=== PATIENT | male | born 1940 | race Caucasian/White ===

== ENCOUNTER 2016-12-08 12:13 | Inpatient (IN) | payer MEDICARE, BC ==
[2016-12-08] MEDS ORDERED: FENTANYL PF 100MCG/2ML VIAL IVP ONE ×3 (12:21→16:12)
[2016-12-08 12:29] LABS: BASO % 0.4 % (0-6); EOS % 3.3 % (0-6); GRAN % 69.2 % (47-80); HEMATOCRIT 37.8 % (42.0-52.0); HEMOGLOBIN 12.6 gm/dl (14.0-18.0); LYMPH % 21.5 % (16-45); MEAN CELL VOLUME 93.8 fl (81-97); MEAN CORPUSCULAR HGB CONC 33.3 g/dl (32-36); MONO % 5.6 % (0-9); PLATELET COUNT 246 K/uL (130-400); RED BLOOD COUNT 4.03 M/uL (4.40-5.70); RED CELL DISTRIBUTION WIDTH 14.2 % (11.5-14.5); WHITE BLOOD COUNT W/O DIFF 11.3 K/uL (4.2-12.2)
[2016-12-08 12:30] LABS: MEAN CORPUSCULAR HEMOGLOBIN 31.2 pg (27-33)
--- NOTE | 2016-12-08 12:34 | Emergency Department Record ---
History of Present Illness - General Chief Complaint: Back Pain/Injury Stated Complaint: BACK PAIN Time Seen by Provider: 12/08/16 12:18 Source: Patient Mode of Arrival: Ambulatory Limitations: No limitations - History of Present Illness Initial Comments: 76 yo male presents with worsening of right sided lower back pain. He reports that he has a history of recurring back pain for many years. The pain has worsened recently. He follows with Dr Vargas. He has an appointment today at 3: 30pm. His pain increased and he called EMS. He reports prior treatment in the pain clinic in the past for the back pain. The pain radiates to the right knee. No weakness or numbness. He has pain with ROM. PCP Scott Carrero MD Complaint: Back pain -: Week(s) Place: Home Radiation: Right leg Severity: Severe Quality: Aching, Sharp, Stabbing Consistency: Intermittent Improves With: Immobilization Worsens With: Movement Context: Bending Associated Symptoms: Denies other symptoms - Related Data Home Medications Medication Instructions Recorded Confirmed Last Taken Acetaminophen [Tylenol 325Mg] 650 mg PO Q6H 12/08/16 12/08/16 Unknown Amlodipine Besylate [Norvasc] 5 mg PO DAILY 12/08/16 12/08/16 Unknown Cholecalciferol (Vitamin D3) 2,000 unit PO DAILY 12/08/16 12/08/16 Unknown [Vitamin D3] Gabapentin [Neurontin] 100 mg PO QHS 12/08/16 12/08/16 Unknown Glipizide 5 mg PO DAILY 12/08/16 12/08/16 Unknown Omeprazole 20 mg PO DAILY 12/08/16 12/08/16 Unknown Allergies Allergy/AdvReac Type Severity Reaction Status Date / Time hydrocodone Allergy Mild PT UNSURE Verified 12/08/16 12:17 OF REACTION hydrocodone bitartrate Allergy Mild PT UNSURE Verified 12/08/16 12:17 [From [place]] OF REACTION penicillin V Allergy RASH Verified 12/08/16 12:17 Review of Systems Constitutional: Denies: Chills, Fever, Weakness Eyes: Denies: Eye discharge, Eye pain ENT: Denies: Congestion, Throat pain Respiratory: Denies: Cough, Dyspnea, Hemoptysis, Wheezes Cardiovascular: Denies: Chest pain, Palpitations, Syncope Endocrine: Denies: Fatigue Gastrointestinal: Denies: Abdominal pain, Diarrhea, Nausea, Vomiting Genitourinary: Denies: Dysuria, Frequency, Hematuria Musculoskeletal: Reports: As per HPI, Back pain, Myalgia. Denies: Joint swelling Skin: Denies: Bruising, Change in color, Rash Neurological: Denies: Confusion, Headache, Numbness, Paresthesias, Tingling, Tremors, Vertigo, Weakness Psychiatric: Denies: Anxiety Hematological/Lymphatic: Denies: Blood Clots, Easy bleeding, Easy bruising, Swollen glands Past Medical History - SOCIAL HISTORY Smoking Status: Never smoker - RESPIRATORY Hx Respiratory Disorders: Yes Hx Pneumonia: Yes - CARDIOVASCULAR Hx Cardio Disorders: Yes Hx Hypertension: Yes Comment:: hypercholesteremia - NEURO Hx Neuro Disorders: No - GI Hx GI Disorders: No - Hx Genitourinary Disorders: Yes Comment:: stage 3 kidney disease - ENDOCRINE Hx Endocrine Disorders: Yes Hx Diabetes: Yes - MUSCULOSKELETAL Hx Musculoskeletal Disorders: Yes Hx Arthritis: Yes - PSYCH Hx Psych Problems: No - HEMATOLOGY/ONCOLOGY Hx Hematology/Oncology Disorders: No Physical Exam - General General Appearance: Alert, Oriented x3, Cooperative, No acute distress Limitations: No limitations - Head Head exam: Normal inspection - Eye Eye exam: Normal appearance. negative: Conjunctival injection, Periorbital swelling - ENT ENT exam: Normal exam, Mucous membranes moist Ear exam: Normal external inspection Nasal Exam: Normal inspection Mouth exam: Normal external inspection - Neck Neck exam: Normal inspection - Respiratory Respiratory exam: Normal lung sounds bilaterally. negative: Respiratory distress - Cardiovascular Cardiovascular Exam: Regular rate, Normal rhythm, Normal heart sounds Peripheral Pulses: 2+: Radial (R), Radial (L) - GI/Abdominal GI/Abdominal exam: Soft. negative: Tenderness - Rectal Rectal exam: Deferred - exam: Deferred - Extremities Extremities exam: Normal inspection, Full ROM, Normal capillary refill. negative: Joint swelling, Tenderness - Back Back exam: Reports: Muscle spasm, Paraspinal tenderness (right lower back), Tenderness, Vertebral tenderness. Denies: Full ROM, Rash noted - Neurological Neurological exam: Alert. negative: Motor sensory deficit, Oriented X3, Reflexes normal - Psychiatric Psychiatric exam: Normal affect, Normal mood. negative: Agitated, Anxious - Skin Skin exam: Dry, Intact, Normal color, Warm Course - Reevaluation(s) Reevaluation #1: The labs were reviewed BUN is 58 and CR is 2.4 with HCO3 14 with normal AG (HCO3 is near baseline) Prior CR was 1.8 on 11/24 with a baseline around 2.0 12/08/16 12:59 12/08/16 13:00 Reevaluation #2: Message left with Dr Vargas regarding the patient 12/08/16 13:34 No significant improvement in pain control 12/08/16 13:48 Dr Vargas's RN called He will see the patient tomorrow on the floor if admitted as a consultation 12/08/16 14:39 12/08/16 18:47 I CECY Covarrubias She will admit for OBS for recheck He will given IVF and recheck BMP in the morning Medical Decision Making - Lab Data Result diagrams: 12/08/16 12:25 12/08/16 12:25 Disposition Disposition: Admit Clinical Impression: Intractable low back pain, Renal insufficiency Disposition: Home, Self-Care Decision to Admit: Admit from ER Decision to Admit Date: 12/08/16 Decision to Admit Time: 14:40 Condition: (1) Good Time of Disposition: 14:40 Quality - Quality Measures Quality Measures: N/A - Blood Pressure Screening Does Patient Have Any of the Following: Active Dx of HTN Blood Pressure Classification: Hypertensive Reading Systolic Measurement: 154 Diastolic Measurement: 71 Screening for High Blood Pressure: Patient Exclusion, Hx of HTN [[id number]] Pre-Hypertensive Follow-up Interventions: Referral to alternative/primary care provider.
[2016-12-08] MEDS ORDERED: ACETAMINOPHEN 1,000 MG/100 ML BTL IVPB ONE (12:35)
[2016-12-08 12:43] LABS: ANION GAP 15.6 (7-16); CARBON DIOXIDE 14.4 mmol/L (22-30); CREATININE 2.4 mg/dL (0.66-1.25)
[2016-12-08 12:47] LABS: INR 0.99; PARTIAL THROMBOPLASTIN TIME 29.4 SECONDS (24.5-39.1); PROTHROMBIN TIME (PATIENT) 10.7 SECONDS (9.5-12.1)
[2016-12-08] MEDS ORDERED: 0.9 % SODIUM CHLORIDE 1,000 ML BAG IV ONE (13:22)
[2016-12-08] MEDS ORDERED: ACETAMINOPHEN 500 MG TABLET PO PRN (19:04)
[2016-12-08] MEDS ORDERED: 0.9 % SODIUM CHLORIDE 1000ML 1,000 ML IV PRN (19:04)
[2016-12-08] MEDS: ACETAMINOPHEN 1,000 MG/100 ML BTL IVPB SCH (20:50)
[2016-12-08 21:13] LABS: URINE APPEARANCE CLEAR; URINE BILIRUBIN NEGATIVE (NEGATIVE); URINE BLOOD NEGATIVE (NEGATIVE); URINE COLOR YELLOW; URINE GLUCOSE (UA) NEGATIVE (NEGATIVE); URINE KETONE NEGATIVE (NEGATIVE); URINE LEUKOCYTE ESTERASE NEGATIVE (NEGATIVE); URINE NITRITE NEGATIVE (NEGATIVE); URINE PROTEIN NEGATIVE (NEGATIVE); URINE UROBILINOGEN 0.2 E.U./dL (0.20 - 1.00)
[2016-12-08] MEDS: FENTANYL PF 100MCG/2ML VIAL IVP PRN (21:48)
[2016-12-08] MEDS: GABAPENTIN 100 MG CAPSULE PO SCH (21:49)
[2016-12-09] MEDS: ACETAMINOPHEN 1,000 MG/100 ML BTL IVPB SCH ×5 (02:49→20:21)
[2016-12-09] MEDS: FENTANYL PF 100MCG/2ML VIAL IVP PRN ×3 (04:00→20:22)
[2016-12-09] MEDS: PANTOPRAZOLE SODIUM 40 MG TABLET PO SCH (06:23)
[2016-12-09 06:57] LABS: BASO % 0.3 % (0-6); EOS % 4.8 % (0-6); GRAN % 63.9 % (47-80); HEMATOCRIT 30.6 % (42.0-52.0); HEMOGLOBIN 10.2 gm/dl (14.0-18.0); MEAN CORPUSCULAR HGB CONC 33.3 g/dl (32-36); PLATELET COUNT 191 K/uL (130-400); RED BLOOD COUNT 3.22 M/uL (4.40-5.70); RED CELL DISTRIBUTION WIDTH 14.2 % (11.5-14.5); WHITE BLOOD COUNT W/O DIFF 7.5 K/uL (4.2-12.2)
[2016-12-09 07:01] LABS: MEAN CORPUSCULAR HEMOGLOBIN 31.6 pg (27-33)
[2016-12-09 07:10] LABS: ALB/GLOB RATIO 1.6 (1.1-1.8); ALBUMIN 3.9 gm/dL (3.5-5.0); ANION GAP 9.3 (7-16); BILIRUBIN,TOTAL 0.42 mg/dL (0.2-1.3); CARBON DIOXIDE 15.7 mmol/L (22-30); CREATININE 2.1 mg/dL (0.66-1.25); TOTAL PROTEIN 6.3 gm/dL (6.3-8.2)
[2016-12-09] MEDS: LISINOPRIL 5 MG TABLET PO SCH (09:58)
[2016-12-09] MEDS: SIMVASTATIN 20 MG TABLET PO SCH (09:58)
[2016-12-09] MEDS: GLIPIZIDE 5 MG TABLET PO SCH (09:59)
[2016-12-09] MEDS: AMLODIPINE BESYLATE 5MG TAB PO SCH (09:59)
[2016-12-09] MEDS ORDERED: Non-Formulary MISC (Omeprazole [Omeprazole] 20 MG) PO SCH (10:00)
[2016-12-09] MEDS ORDERED: LISINOPRIL 2.5 MG PO SCH (10:00)
--- NOTE | 2016-12-09 12:26 | History & Physical ---
History of Present Illness - Date of Service Date of Service for History & Physical: 12/09/16 - History of Present Illness Admitting Diagnosis: Intractable Back pain, renal insufficiency History of Present Illness: 76 yo male admitted for intractable low back pain. PMHx of back sugery > 20 years ago, chronic LBP, DM2, peripheral neuropathy, renal failure, HTN, acid reflux, obesity, and gout. Patient presented to our ED with worsening right sided low back pain. Onset yesterday after getting out of the shower. Denies any known mechanism of injury such as bending, twisting. States his low back pain typically resolves on its own w/ rest, however this current episode has not. Associated symptoms include pain shooting down into right knee along with burning behind right leg. Denies weakness/ numbness (aside from his peripheral neuropathy). upon presentation, temp 97.4, HR 66, BP 154/71, RR 20, pulse ox 99% on RA. H/ H stable from previous hospital visit. Potassium 5.7, BUN 58, Cr 2.4 (baseline Cr around 2), GFR 28. Glucose 265. UA: negative. Patient was started on 100 mls/hr of IVFs, Fentanyl 50 mcg Q6H PRN, &Ofirmev [address] Vargas contacted and agree's to evaluate patient today. Patient admitted for further medical management. 12/09/16- patient is lying in bed comfortably. Denies any pain at rest. Unable to ambulate due to pain level w/ mobility. Admits to h/o peripheral neuropathy , however no new numbness or tingling. States he has pain running down from his low back to behind his right knee. Unsure if he's any more weak than usual as he's not been able to ambulate. Denies loss in bowel/bladder control. Normal GI/ output. Patient is NPO this morning. Denies fever, chills, n/v/ abd pain, change in bowel habits, cough, sob, drea, cp, unintentional weight loss or headaches. States he's lost about 10 #'s intentionally over the past month as he's trying to live healthier and correct his potassium level. Patient follows with Dr. Saleh, his resource economist re renal failure and elevated potassium level. Patient has followed with Dr. Vargas in the past re low back pain, however his last visit was back in 2013. No recent hospitalizations or illnesses per patient. PCP: Marlon Collins D.O. Nephrology: Dr. Saleh Pain specialist: Dr. Vargas Travel Screening - Travel/Exposure Within Last 30 Days Have you traveled within the last 30 days?: No - Travel/Exposure Within Last Year Have you traveled outside the [place] in the last year?: No - Additonal Travel Details Have you been exposed to anyone with a communicable illness?: No Review of Systems Constitutional: Denies: Chills, Fever, Weakness Eyes: Denies: Eye discharge, Eye pain ENT: Denies: Congestion, Throat pain Respiratory: Denies: Cough, Dyspnea, Hemoptysis, Wheezes Cardiovascular: Denies: Chest pain, Palpitations, Syncope Endocrine: Denies: Fatigue Gastrointestinal: Denies: Abdominal pain, Diarrhea, Nausea, Vomiting Genitourinary: Denies: Dysuria, Frequency, Hematuria Musculoskeletal: Reports: As per HPI, Back pain, Myalgia. Denies: Joint swelling Skin: Denies: Bruising, Change in color, Rash Neurological: Reports: Numbness (LE, b/l, chronic 2/2 periph neuropathy). Denies: Confusion, Headache, Paresthesias, Tingling, Tremors, Vertigo, Weakness Psychiatric: Denies: Anxiety Hematological/Lymphatic: Denies: Blood Clots, Easy bleeding, Easy bruising, Swollen glands Past Medical History - SOCIAL HISTORY Smoking Status: Never smoker - RESPIRATORY Hx Respiratory Disorders: Yes Hx Pneumonia: Yes - CARDIOVASCULAR Hx Cardio Disorders: Yes Hx Hypertension: Yes Comment:: hypercholesteremia - NEURO Hx Neuro Disorders: No - GI Hx GI Disorders: No - Hx Genitourinary Disorders: Yes Comment:: stage 3 kidney disease - ENDOCRINE Hx Endocrine Disorders: Yes Hx Diabetes: Yes - MUSCULOSKELETAL Hx Musculoskeletal Disorders: Yes Hx Arthritis: Yes - PSYCH Hx Psych Problems: No - HEMATOLOGY/ONCOLOGY Hx Hematology/Oncology Disorders: No Family Medical History Any Significant Family History?: Yes Hx Cancer: Father Hx Heart Disease: Father, Mother H&P Meds/Allergies - Allergies Allergies: Allergies Allergy/AdvReac Type Severity Reaction Status Date / Time hydrocodone Allergy Mild PT UNSURE Verified 12/08/16 12:17 OF REACTION hydrocodone bitartrate Allergy Mild PT UNSURE Verified 12/08/16 12:17 [From [place]] OF REACTION penicillin V Allergy RASH Verified 12/08/16 12:17 - Home Medications Home Medications Medication Instructions Recorded Confirmed Last Taken Acetaminophen [Tylenol 325Mg] 650 mg PO Q6H 12/08/16 12/08/16 Unknown Amlodipine Besylate [Norvasc] 5 mg PO DAILY 12/08/16 12/08/16 Unknown Cholecalciferol (Vitamin D3) 2,000 unit PO DAILY 12/08/16 12/08/16 Unknown [Vitamin D3] Gabapentin [Neurontin] 100 mg PO QHS 12/08/16 12/08/16 Unknown Omeprazole 20 mg PO DAILY 12/08/16 12/08/16 Unknown Glipizide [Glipizide ER] 5 mg PO DAILY 12/09/16 12/09/16 Unknown Metoprolol Succinate [Toprol Xl] 100 mg PO DAILY 12/09/16 12/09/16 Unknown - Active Medications Active Medications: Current Medications Acetaminophen (Tylenol 500mg Tab) 500 mg PO Q6H PRN PRN Reason: PAIN/TEMP Amlodipine Besylate (Norvasc) 5 mg PO DAILY [facility] Last Admin: 12/09/16 09:59 Dose: 5 mg Fentanyl Citrate () 50 mcg IVP Q6H PRN PRN Reason: Pain - General Last Admin: 12/09/16 09:59 Dose: 50 mcg Gabapentin (Neurontin) 100 mg PO QHS [facility] Last Admin: 12/08/16 21:49 Dose: 100 mg Glipizide (Glucotrol) 5 mg PO DAILY [facility] Last Admin: 12/09/16 09:59 Dose: 5 mg Sodium Chloride () 1,000 mls @ 100 mls/hr IV .Q10H PRN PRN Reason: LARGE VOLUME IV Last Admin: 12/09/16 04:01 Dose: 100 mls/hr Acetaminophen (Ofirmev) 1,000 mg in 100 mls @ 400 mls/hr IVPB Q6H [facility] Last Infusion: 12/09/16 03:16 Dose: Infused Lisinopril (Zestril) 2.5 mg PO DAILY [facility] Last Admin: 12/09/16 09:58 Dose: 2.5 mg [facility] Admin: 12/09/16 06:23 Dose: Not Given Simvastatin (Zocor) 20 mg PO DAILY [facility] Last Admin: 12/09/16 09:58 Dose: 20 mg Physical Exam - Vital Signs Vital Signs: Vital Signs - Last 24 Hrs Temp Pulse Pulse Resp BP Pulse Ox 12/09/16 05:57 98.5 F 57 L 18 121/64 99 12/08/16 21:00 63 16 12/08/16 19:04 98.1 F 57 L 16 130/67 98 12/08/16 18:56 56 L 16 12/08/16 18:10 63 18 141/66 98 - General General Appearance: Alert, Oriented x3, Cooperative, No acute distress Limitations: No limitations - Head Head exam: Normal inspection - Eye Eye exam: Normal appearance. negative: Conjunctival injection, Periorbital swelling - ENT ENT exam: Normal exam, Mucous membranes moist Ear exam: Normal external inspection Nasal Exam: Normal inspection Mouth exam: Normal external inspection - Neck Neck exam: Normal inspection - Respiratory Respiratory exam: Normal lung sounds bilaterally. negative: Respiratory distress - Cardiovascular Cardiovascular Exam: Regular rate, Normal rhythm, Normal heart sounds Peripheral Pulses: 2+: Radial (R), Radial (L) - GI/Abdominal GI/Abdominal exam: Soft. negative: Tenderness - Rectal Rectal exam: Deferred - exam: Deferred - Extremities Extremities exam: Normal inspection, Full ROM, Normal capillary refill. negative: Joint swelling, Tenderness - Back Back exam: Reports: Muscle spasm, Paraspinal tenderness (right lower back), Tenderness, Vertebral tenderness. Denies: Full ROM, Rash noted - Neurological Neurological exam: Alert. negative: Motor sensory deficit, Oriented X3, Reflexes normal - Psychiatric Psychiatric exam: Normal affect, Normal mood. negative: Agitated, Anxious - Skin Skin exam: Dry, Intact, Normal color, Warm Results - Labs Result Diagrams: 12/09/16 06:09 12/09/16 06:41 Labs Last 24 Hours: Laboratory Results - last 24 hr 12/08/16 12/09/16 12/09/16 Unknown 06:00 06:09 WBC 7.5 RBC 3.22 L Hgb 10.2 L Hct 30.6 L MCV 95.0 MCH 31.6 MCHC 33.3 RDW 14.2 Plt Count 191 MPV 10.0 Gran % 63.9 Lymphocytes % 25.0 Monocytes % 6.0 Eosinophils % 4.8 Basophils % 0.3 Sodium Cancelled Potassium Cancelled Chloride Cancelled Carbon Dioxide Cancelled Anion Gap Cancelled BUN Cancelled Creatinine Cancelled Estimated GFR Cancelled Random Glucose Cancelled Calcium Cancelled Total Bilirubin AST ALT Alkaline Phosphatase Total Protein Albumin Globulin Albumin/Globulin Ratio Urine Color Yellow Urine Appearance Clear Urine pH 5.5 Ur Specific [place] 1.015 Urine Protein Negative Urine Glucose (UA) Negative Urine Ketones Negative Urine Blood Negative Urine Nitrite Negative Urine Bilirubin Negative Urine Urobilinogen 0.2 Ur Leukocyte Esterase Negative 12/09/16 06:41 WBC RBC Hgb Hct MCV MCH MCHC RDW Plt Count MPV Gran % Lymphocytes % Monocytes % Eosinophils % Basophils % Sodium 141 Potassium 5.6 H Chloride 116 H Carbon Dioxide 15.7 L Anion Gap 9.3 BUN 49 H Creatinine 2.1 H Estimated GFR 33 Random Glucose 127 H Calcium 9.3 Total Bilirubin 0.42 AST 19 ALT 39 Alkaline Phosphatase 81 Total Protein 6.3 Albumin 3.9 Globulin 2.4 Albumin/Globulin Ratio 1.6 Urine Color Urine Appearance Urine pH Ur Specific [place] Urine Protein Urine Glucose (UA) Urine Ketones Urine Blood Urine Nitrite Urine Bilirubin Urine Urobilinogen Ur Leukocyte Esterase VTE H&P Assessment - Risk for VTE Risk for VTE: Yes Risk Level: Moderate Risk Assessment Date: 12/09/16 Risk Assessment Time: 12:00 VTE Orders Placed or Will Be Placed: No VTE Reason for No Prophylaxis: Not Indicated (patient may be going to surgery later today) Plan - Detailed Diagnosis and Plan (1) Intractable low back pain Current Visit: Yes Status: Acute Base Code: M54.5 - LOW BACK PAIN Comment : 12/09/16: strain vs. disc protrusion vs. other? - continue IV pain control (Fentanyl 50 mcg Q6H PRN, Ofirmex 1000 mg Q6H [facility]). - Dr. Vargas consulted - Will keep NPO in case of procedure (2) Renal insufficiency Current Visit: Yes Status: Acute Base Code: N28.9 - DISORDER OF KIDNEY AND URETER, UNSPECIFIED Comment: 12/09/16- baseline Cr ~2.0 - Cr improved from 2.4->2.1, GFR 28->33 - Continue gentle hydration. Will decrease to 75 mls/hr. - continue to monitor renal function closely - patient following with Dr. Saleh (nephrology). Per patient, his next nephrology visit is 12/22. (3) DVT prophylaxis Current Visit: Yes Status: Acute Base Code: [id number] - Comment: 12/09/16- moderate- high risk. Will hold off on any anticoagulation at this time as patient may be having a procedure later today. (4) DNR (do not resuscitate) Current Visit: Yes Status: Acute Base Code: Z66 - DO NOT RESUSCITATE Comment: 12/09/16- pt is DNR
[2016-12-09] MEDS: 0.9 % SODIUM CHLORIDE 1000ML 1,000 ML IV PRN (13:49)
[2016-12-09] MEDS: GABAPENTIN 100 MG CAPSULE PO SCH (22:07)
[2016-12-10] MEDS: ACETAMINOPHEN 1,000 MG/100 ML BTL IVPB SCH ×4 (03:41→22:04)
[2016-12-10] MEDS: PANTOPRAZOLE SODIUM 40 MG TABLET PO SCH (06:26)
[2016-12-10 07:10] LABS: BASO % 0.3 % (0-6); GRAN % 61.9 % (47-80); HEMATOCRIT 31.6 % (42.0-52.0); HEMOGLOBIN 10.5 gm/dl (14.0-18.0); LYMPH % 27.5 % (16-45); MEAN CELL VOLUME 95.8 fl (81-97); MEAN CORPUSCULAR HEMOGLOBIN 31.8 pg (27-33); MEAN CORPUSCULAR HGB CONC 33.2 g/dl (32-36); MEAN PLATELET VOLUME 9.9 fl (7.4-10.4); MONO % 6.3 % (0-9); PLATELET COUNT 192 K/uL (130-400); RED CELL DISTRIBUTION WIDTH 14.2 % (11.5-14.5); WHITE BLOOD COUNT W/O DIFF 6.7 K/uL (4.2-12.2)
[2016-12-10 07:27] LABS: ALB/GLOB RATIO 1.7 (1.1-1.8); ANION GAP 10.6 (7-16); BILIRUBIN,TOTAL 0.49 mg/dL (0.2-1.3); CARBON DIOXIDE 16.4 mmol/L (22-30); CREATININE 1.9 mg/dL (0.66-1.25); TOTAL PROTEIN 6.4 gm/dL (6.3-8.2)
[2016-12-10] MEDS: LISINOPRIL 5 MG TABLET PO SCH (10:39)
[2016-12-10] MEDS: AMLODIPINE BESYLATE 5MG TAB PO SCH (10:41)
[2016-12-10] MEDS: SIMVASTATIN 20 MG TABLET PO SCH (10:41)
[2016-12-10] MEDS: GLIPIZIDE 5 MG TABLET PO SCH (10:41)
[2016-12-10] MEDS: 0.9 % SODIUM CHLORIDE 1000ML 1,000 ML IV PRN (10:43)
[2016-12-10] MEDS ORDERED: HYDROCODONE/APAP 10/325 TABLET PO PRN (11:14)
--- NOTE | 2016-12-10 11:22 | Physician Progress Note ---
Subjective - Date Date of Physician Progress Note: 12/10/16 - Subjective Subjective Comment: patient sitting up in bed comfortably. Pain is better controlled today. he's not been up and moving at all. he's afraid this may exacerbate his pain quite a bit. numbness in LE unchanges. states he's urinating every hour since being started on IVFs. +stool today. normal appetite. denies fever/chills, n/v, abd pain, pain w/ urination, or new pain. saw dr. vargas yesterday evening. Objective - Vital Signs Vital Signs: Vital Signs - Last 24 Hrs Temp Pulse Pulse Resp BP Pulse Ox 12/10/16 09:00 16 12/10/16 07:45 98.9 F 62 18 128/64 97 12/10/16 05:00 97.4 F L 63 16 115/53 98 12/09/16 21:00 98.0 F 62 71 16 115/53 98 - General General Appearance: Alert, Oriented x3, Cooperative, No acute distress Limitations: No limitations - Head Head exam: Normal inspection - Eye Eye exam: Normal appearance. negative: Conjunctival injection, Periorbital swelling - ENT ENT exam: Normal exam, Mucous membranes moist Ear exam: Normal external inspection Nasal Exam: Normal inspection Mouth exam: Normal external inspection - Neck Neck exam: Normal inspection - Respiratory Respiratory exam: Normal lung sounds bilaterally. negative: Respiratory distress - Cardiovascular Cardiovascular Exam: Regular rate, Normal rhythm, Normal heart sounds Peripheral Pulses: 2+: Radial (R), Radial (L) - GI/Abdominal GI/Abdominal exam: Soft. negative: Tenderness - Rectal Rectal exam: Deferred - exam: Deferred - Extremities Extremities exam: Normal inspection, Full ROM, Normal capillary refill. negative: Joint swelling, Tenderness - Back Back exam: Reports: Muscle spasm, Paraspinal tenderness (right lower back), Tenderness, Vertebral tenderness. Denies: Full ROM, Rash noted - Neurological Neurological exam: Alert. negative: Motor sensory deficit, Oriented X3, Reflexes normal - Psychiatric Psychiatric exam: Normal affect, Normal mood. negative: Agitated, Anxious - Skin Skin exam: Dry, Intact, Normal color, Warm Assessment and Plan - Inpatient Certification Inpatient Certification: risk factors: intractable back pain, unable to ambulate 2/2 pain level, poor renal function treatment: IV pain medication, IVFs, monitoring labs, pain consult length of stay: 4-6 nights d/c plan: home, self care/ possible rehab services 12/10/16 11:30 - Assessment and Plan (1) Intractable low back pain Current Visit: Yes Status: Acute Base Code: M54.5 - LOW BACK PAIN Comment : 12/10/16: strain vs. disc protrusion vs. other? - pain control: Ofirmev 1000 mg Q6H PRN, Fentanyl 50 mcg Q6H PRN - Dr. Vargas will see patient as outpatient - PT/OT eval planned for later today. (2) Renal insufficiency Current Visit: Yes Status: Acute Base Code: N28.9 - DISORDER OF KIDNEY AND URETER, UNSPECIFIED Comment: 12/10/16- baseline Cr ~2.0 - Cr improved from 2.1->1.9, GFR 33->37 - patient tolerating PO fluids and renal funciton has improved, will saline lock - continue to monitor renal function closely - patient following with Dr. Saleh (nephrology). Per patient, his next nephrology visit is 12/22. (3) DVT prophylaxis Current Visit: Yes Status: Acute Base Code: [id number] - Comment: 12/10/16- moderate- high risk. Lovenox 40 mg sq qd. (4) DNR (do not resuscitate) Current Visit: Yes Status: Acute Base Code: Z66 - DO NOT RESUSCITATE Comment: 12/10/16- pt is DNR Results - Labs Result Diagrams: 12/10/16 06:19 12/10/16 06:19 Labs Last 24 Hours: Laboratory Results - last 24 hr 12/10/16 12/10/16 12/10/16 06:19 06:19 07:30 WBC 6.7 RBC 3.30 L Hgb 10.5 L Hct 31.6 L MCV 95.8 MCH 31.8 MCHC 33.2 RDW 14.2 Plt Count 192 MPV 9.9 Gran % 61.9 Lymphocytes % 27.5 Monocytes % 6.3 Eosinophils % 4.0 Basophils % 0.3 Sodium 143 Potassium 5.8 H Chloride 116 H Carbon Dioxide 16.4 L Anion Gap 10.6 BUN 39 H Creatinine 1.9 H Estimated GFR 37 POC Glucose 93 Random Glucose 91 Calcium 9.7 Total Bilirubin 0.49 AST 31 ALT 47 Alkaline Phosphatase 84 Total Protein 6.4 Albumin 4.0 Globulin 2.4 Albumin/Globulin Ratio 1.7 DVT/PE Assessment - Risk for VTE Risk for VTE: No Risk Level: Moderate Risk Assessment Date: 12/09/16 Risk Assessment Time: 12:00 VTE Orders Placed or Will Be Placed: No VTE Reason for No Prophylaxis: Not Indicated (patient may be going to surgery later today) - Active Medicaitons Current Medications: Current Medications Acetaminophen (Tylenol 500mg Tab) 500 mg PO Q6H PRN PRN Reason: PAIN/TEMP Hydrocodone Bitart/Acetaminophen ([place] 10mg/325mg) 1 each PO Q6H PRN PRN Reason: Pain - General Amlodipine Besylate (Norvasc) 5 mg PO DAILY [facility] Last Admin: 12/10/16 10:41 Dose: 5 mg Fentanyl Citrate () 50 mcg IVP Q6H PRN PRN Reason: Pain - General Last Admin: 12/09/16 20:22 Dose: 50 mcg Gabapentin (Neurontin) 100 mg PO QHS [facility] Last Admin: 12/09/16 22:07 Dose: 100 mg Glipizide (Glucotrol) 5 mg PO DAILY [facility] Last Admin: 12/10/16 10:41 Dose: 5 mg Acetaminophen (Ofirmev) 1,000 mg in 100 mls @ 400 mls/hr IVPB Q6H [facility] Last Admin: 12/10/16 08:44 Dose: 400 mls/hr Lisinopril (Zestril) 2.5 mg PO DAILY [facility] Last Admin: 12/10/16 10:39 Dose: 2.5 mg Pantoprazole Sodium (Protonix) 40 mg PO DAILYAC [facility] Last Admin: 12/10/16 06:26 Dose: 40 mg Simvastatin (Zocor) 20 mg PO DAILY [facility] Last Admin: 12/10/16 10:41 Dose: 20 mg AMI Plan - Labs Result Diagrams: 12/10/16 06:19 12/10/16 06:19
[2016-12-10] MEDS: FENTANYL PF 100MCG/2ML VIAL IVP PRN ×2 (12:55→22:03)
[2016-12-10] MEDS: ENOXAPARIN 40 MG/0.4 ML SYR SQ SCH (12:57)
--- NOTE | 2016-12-10 17:59 | Rehab Evaluation ---
Patient Information - Patient Information Diagnosis: Intractable back pain, renal insufficiency Ordered Treatment: PT Evaluate and Treat Status: Initial Evaluation Surgery: No History: Detail (Pt has had chronic low back pain, had surgery more than 20 years to fuse L4-5, L5-S1. He states that he has intermittent increase in pain when "overdoing" activity, often w/repeated bending; he simply rests and is able to resume. He reports that he was pulling grapevines out of a chain-link fence two weeks ago. He had increase in pain after showering two days ago, was unable to stand up from bending over in order to walk. He was assisted by EMS to a chair for transport out of his home, then transported to ED and admitted to Med-Surg 12/08/16 w/intractable pain.) Past Med/Adolfo Hx Detail: Detail (PMH is significant for L IRA, DM2, peripheral neuropathy, renal failure, HTN, acid reflux, back surgery (L4-5, L5-S1 fusion), B knee arthroscopies, B shoulder surgeries. Had injections L low back about 2 years ago.) Premorbid Status: Detail (Pt ambulated w/o assistive device typically within his home, but intermittently used cane when he had increased low back pain. He has a front-wheeled walker that he sometimes uses if pain is even worse. He was active with yard work and around his home prior to hospitalization and independent with all ADLs.) Social History: Detail (Pt lives with his Yvonne in a single story home w/3 steps to enter the home.) Precautions: [place], Fall - Time With Patient Total Time Spent With Patient (Min): 60 Treatment Procedures: Detail (PT evaluation, manual therapy to mobilize R ilium downslip, L ilium upslip, R sacral rotation, STM to R lumbosacral region in sitting.) Subjective Information - Subjective Information Per Patient (Pt sitting up in bed upon arrival, had received pain medication about 20 minutes before arrival. Awake, alert, cooperative for therapy. Localizes pain to R low back that radiates around front of R hip and down anterior R thigh to knee. He is noting some pain radiating across low back to the left and to the left hip, but not as severe as the R LE pain has been. He has not moved from the position he's in since being admitted.) Objective Data - Pain Pain Present: Yes Pain Intensity: 5 (R low back, R anterior thigh, decreased to 3/10 at end of treatment) Pain Scale Used: Numeric (1 - 10) - Mental Status Patient Orientation: Oriented x3 - Visual Perception Appears within normal limits for therapeutic activities - ROM Within normal limits (AROM in B LE's is grossly WNL at hips, knees, and ankles. Trunk ROM limited by pain, not fully assessed due to pain limitations.) - Strength/Tone Within normal limits (Strength in major ms groups of B LE's is grossly WNL for functional mobility.) - Coordination Appears within normal limits for therapeutic activities - Bed Mobility Needs Assist (Instructed in "log-rolling" to splint back and coordinated movement for sidelying/sit transition. Required only verbal cues.) - Transfers Independent (Independent w/sit to stand transfers from bedside, using bedrail and single tip cane for support.) - Balance Balance Sitting: Good Balance Standing: Good, Fair (Pt unsure of R LE supporting him initially and intermittently w/mild increase in pain while standing/moving, but no loss of balance requiring assist.) - Sensation Deficit (Distal LE numbness/tingling associated w/peripheral neuropathy.) - Gait Detail (Ambulated about 125 feet from bedside out to hallway near PACU and back to bedside, w/single tip cane, and UTILITY TELLER/CGA. No loss of balance, but pt unsure of R LE supporting him at times. Intermittent increase in pain.) Therapy Assessment - Therapy Assessment Detail (Pt exhibits mobility impairment consistent w/acute exacerbation of chronic low back pain. He responded well to manual therapy techniques and initial mobility.) Patient Education - Patient Education Teaching Topic: Disease Process, Exercise/Activity Response: Return Demonstration, Verbalize Understanding Teaching Method: Discussion Teaching Recipient: Patient Barriers To Learning: None Problem List - Problem List Physical Therapy Problem List: Detail (1. Dysfunction of pelvic alignment/ mobility 2. Decreased confidence w/bed mobility, transfers, gait. 3. Local tenderness R lumbosacral region.) Goals - Goals Physical Therapy Goals: 1. Pt will be independent w/bed mobility, transfers, and gait w/single tip cane. 2. Pt will report decreased pain to 3/10 or less. Prognosis - Prognosis Good Plan - Plan Physical Therapy Plan: Pt will be seen 1-2x/daily M-F for mobility/transfer training, manual therapy, and stabilization exercises while hospitalized. He anticipates seeing Dr. Vargas for further pain management and he may benefit from outpatient physical therapy once discharged to help manage chronic pain.
[2016-12-10] MEDS: GABAPENTIN 100 MG CAPSULE PO SCH (22:04)
[2016-12-11] MEDS: ACETAMINOPHEN 1,000 MG/100 ML BTL IVPB SCH (03:53)
[2016-12-11 06:37] LABS: BASO % 0.3 % (0-6); GRAN % 58.9 % (47-80); HEMATOCRIT 31.2 % (42.0-52.0); HEMOGLOBIN 10.3 gm/dl (14.0-18.0); LYMPH % 27.3 % (16-45); MEAN PLATELET VOLUME 9.8 fl (7.4-10.4); MONO % 7.5 % (0-9); PLATELET COUNT 182 K/uL (130-400); RED BLOOD COUNT 3.25 M/uL (4.40-5.70)
[2016-12-11] MEDS: PANTOPRAZOLE SODIUM 40 MG TABLET PO SCH (06:49)
[2016-12-11 06:57] LABS: CARBON DIOXIDE 16.9 mmol/L (22-30); CREATININE 1.9 mg/dL (0.66-1.25)
[2016-12-11 07:01] LABS: MEAN CORPUSCULAR HEMOGLOBIN 31.6 pg (27-33)
--- NOTE | 2016-12-11 08:16 | Rehab Evaluation ---
Patient Information - Patient Information Diagnosis: Intractable back pain, renal insufficiency Ordered Treatment: OT Evaluate and Treat Surgery: No History: Detail (Pt has had chronic low back pain, had surgery more than 20 years to fuse L4-5, L5-S1. He states that he has intermittent increase in pain when "overdoing" activity, often w/repeated bending; he simply rests and is able to resume. He reports that he was pulling grapevines out of a chain-link fence two weeks ago. He had increase in pain after showering two days ago, was unable to stand up from bending over in order to walk. He was assisted by EMS to a chair for transport out of his home, then transported to ED and admitted to Med-Surg 12/08/16 w/intractable pain.) Past Med/Adolfo Hx Detail: Detail (PMH is significant for L IRA, DM2, peripheral neuropathy, renal failure, HTN, acid reflux, back surgery (L4-5, L5-S1 fusion), B knee arthroscopies, B shoulder surgeries. Had injections L low back about 2 years ago.) Premorbid Status: Detail (Pt ambulated w/o assistive device typically within his home, but intermittently used cane when he had increased low back pain. He has a front-wheeled walker that he sometimes uses if pain is even worse. He was active with yard work and around his home prior to hospitalization and independent with all ADLs.) Social History: Detail (Pt lives with his Yvonne, son, daughter in law, daughter and son in law in a single story home w/3 steps with railing to enter the home. He has a basement but generally stays on the first floor. He has a walk in shower with grab bars and an elevated toilet with grab bars. He usually stands to shower and ambulates without an assistive device. He has a shower seat, straight cane, 2 wheeled walker and lift chair.) Precautions: [place], Fall - Time With Patient Total Time Spent With Patient (Min): 30 Treatment Procedures: Detail (OT eval low complexity) Subjective Information - Subjective Information Per Patient Objective Data - Pain Pain Present: Yes (3/10 right sided low back pain) - Mental Status Patient Orientation: Oriented x3 - Visual Perception Appears within normal limits for therapeutic activities (Pt wears glasses to read) - Coordination Appears within normal limits for therapeutic activities - Bed Mobility Independent (Ind with supine to sit and sit to supine.) - Transfers Independent (Ind with sit to stand from EOB and chair.) - Balance Balance Sitting: Good Balance Standing: Good - Sensation Intact - Gait Detail (Pt ambulated 60 feet with straight cane and SBA. Pt reports pain is better when ambulating.) - ADL's/IADL's Detail (Pt reports he is toileting with supervision from nursing but he has no concerns about self care activities once his back pain resolves.) Therapy Assessment - Therapy Assessment Detail (Pt presents with no concerns as far as self care activities, resolving back pain, improving functional mobility.) Problem List - Problem List Physical Therapy Problem List: Detail (1. Dysfunction of pelvic alignment/ mobility 2. Decreased confidence w/bed mobility, transfers, gait. 3. Local tenderness R lumbosacral region.) Occupational Therapy Problem List: Detail (No current OT problems identified.) Goals - Goals Physical Therapy Goals: 1. Pt will be independent w/bed mobility, transfers, and gait w/single tip cane. 2. Pt will report decreased pain to 3/10 or less. Occupational Therapy Goals: No current OT goals identified. Prognosis - Prognosis Good Plan - Plan Physical Therapy Plan: Pt will be seen 1-2x/daily M-F for mobility/transfer training, manual therapy, and stabilization exercises while hospitalized. He anticipates seeing Dr. Vargas for further pain management and he may benefit from outpatient physical therapy once discharged to help manage chronic pain. Occupational Therapy Plan: No further IP OT recommended at this time. Thank you for this referral.
[2016-12-11] MEDS ORDERED: HYDROCODONE/APAP 10/325 TABLET PO PRN (09:07)
--- NOTE | 2016-12-11 09:09 | Discharge Summary ---
Providers Discharge Summary Date: 12/11/16 Date of admission: 12/09/16 13:30 Expected Date of Discharge: 12/12/16 Attending physician: RICKEY DUBON Primary care physician: MARLON CARRERO D.O. Physical Exam - Vital Signs Vital Signs: Vital Signs - Last 24 Hrs Temp Pulse Pulse Resp BP Pulse Ox 12/11/16 05:00 98.1 F 73 18 144/68 98 12/10/16 21:00 98.3 F 66 66 16 138/81 98 12/10/16 15:00 99.0 F 73 18 115/59 98 - General General Appearance: Alert, Oriented x3, Cooperative, No acute distress Limitations: No limitations - Head Head exam: Normal inspection - Eye Eye exam: Normal appearance. negative: Conjunctival injection, Periorbital swelling - ENT ENT exam: Normal exam, Mucous membranes moist Ear exam: Normal external inspection Nasal Exam: Normal inspection Mouth exam: Normal external inspection - Neck Neck exam: Normal inspection - Respiratory Respiratory exam: Normal lung sounds bilaterally. negative: Respiratory distress - Cardiovascular Cardiovascular Exam: Regular rate, Normal rhythm, Normal heart sounds Peripheral Pulses: 2+: Radial (R), Radial (L) - GI/Abdominal GI/Abdominal exam: Soft. negative: Tenderness - Rectal Rectal exam: Deferred - exam: Deferred - Extremities Extremities exam: Normal inspection, Full ROM, Normal capillary refill. negative: Joint swelling, Tenderness - Back Back exam: Denies: Full ROM, Rash noted, Tenderness - Neurological Neurological exam: Alert. negative: Motor sensory deficit, Oriented X3, Reflexes normal - Psychiatric Psychiatric exam: Normal affect, Normal mood. negative: Agitated, Anxious - Skin Skin exam: Dry, Intact, Normal color, Warm Hospitalization - Hospitalization Admission Diagnosis: Intractable Back pain, renal insufficiency - Problem List/Discharge Diagnosis (1) Intractable low back pain Current Visit: Yes Status: Acute Base Code: M54.5 - LOW BACK PAIN Comment : 12/12/16: strain vs. disc protrusion vs. other? Patient was doing well, however re strained his back this morning in the bathroom. - Pain control: Tylenol 650 mg PO Q6H prn & [place] 10/325 mg 1/2-1 tab Q6H prn for pain. - Dr. Vargas will see patient as outpatient- patient agree's to call wednesday to schedule an appt. - PT as outpatient, which is patient's preference. (2) Renal insufficiency Current Visit: Yes Status: Acute Base Code: N28.9 - DISORDER OF KIDNEY AND URETER, UNSPECIFIED Comment: 12/12/16- baseline Cr ~2.0 - Cr 1.9, GFR 37 - potassium 5.5 - baseline EKG: sinus rhythm - he denies CP, heart palpitations, TAMARA. - patient will follow up with PCP, shirt closer re elevated K+ level. He will get labs drawn prior to his f/up visit. lab slip given to patient. (3) DNR (do not resuscitate) Current Visit: Yes Status: Acute Base Code: Z66 - DO NOT RESUSCITATE Comment: 12/12/16- pt remained dnr - Hospitalization Course Disposition: [facility] to [facility] Course: 76 yo male admitted for intractable low back pain. PMHx of back sugery > 20 years ago, chronic LBP, DM2, peripheral neuropathy, renal failure, HTN, acid reflux, obesity, and gout. Patient presented to our ED with worsening right sided low back pain. Onset yesterday after getting out of the shower. Denies any known mechanism of injury such as bending, twisting. States his low back pain typically resolves on its own w/ rest, however this current episode has not. Associated symptoms include pain shooting down into right knee along with burning behind right leg. Denies weakness/ numbness (aside from his peripheral neuropathy). upon presentation, temp 97.4, HR 66, BP 154/71, RR 20, pulse ox 99% on RA. H/ H stable from previous hospital visit. Potassium 5.7, BUN 58, Cr 2.4 (baseline Cr around 2), GFR 28. Glucose 265. UA: negative. Patient was started on 100 mls/hr of IVFs, Fentanyl 50 mcg Q6H PRN, &Ofirmev [address] Vargas contacted and agree's to evaluate patient today. Patient admitted for further medical management. 12/09/16- patient is lying in bed comfortably. Denies any pain at rest. Unable to ambulate due to pain level w/ mobility. Admits to h/o peripheral neuropathy , however no new numbness or tingling. States he has pain running down from his low back to behind his right knee. Unsure if he's any more weak than usual as he's not been able to ambulate. Denies loss in bowel/bladder control. Normal GI/ output. Patient is NPO this morning. Denies fever, chills, n/v/ abd pain, change in bowel habits, cough, sob, tamara, cp, unintentional weight loss or headaches. States he's lost about 10 #'s intentionally over the past month as he's trying to live healthier and correct his potassium level. Patient follows with Dr. Saleh, his shirt closer re renal failure and elevated potassium level. Patient has followed with Dr. Vargas in the past re low back pain, however his last visit was back in 2013. No recent hospitalizations or illnesses per patient. PCP: Marlon Collins, Asim[facility]. Nephrology: Dr. Saleh Pain specialist: Dr. Vargas 12/11-Patient is sitting up in chair comfortably. States his pain is much better controlled. He requested Fentanyl around 8 pm last night for pain, otherwise pain well controlled with IV Tylenol. Patient tolerated PT/OT. Walked down the navarro this morning with OT. Ambulating well. Denies worsening LE weakness or numbness. Tolerating meals. normal GI/ function. Afebrile. denies sob, cp, cough. states he has pnd and a sore throat. States he gets this every year and it typically resolves with azithromycin. 12/12/16- pt feeling well. sitting up in chair comfortably. in much better spirits today. his back pain is much better controlled this morning w/ PO tylenol and norco. states he prefers tylenol and norco makes him more tired. he 's ambulating well. normal GI/ function. afebrile. Abnormal Labs: Abnormal Lab Results 12/10/16 12/10/16 12/10/16 Range/Units 06:19 06:19 17:15 RBC 3.30 L (4.40-5.70) M/uL Hgb 10.5 L (14.0-18.0) gm/dl Hct 31.6 L (42.0-52.0) % Potassium 5.8 H (3.5-5.1) mmol/L Chloride 116 H (98-107) mmol/L Carbon Dioxide 16.4 L (22-30) mmol/L BUN 39 H (9-20) mg/dL Creatinine 1.9 H (0.66-1.25) mg/dL POC Glucose 126 H (70-110) mg/dL Random Glucose (70-110) mg/dL 12/10/16 12/11/16 12/11/16 Range/Units 22:00 06:05 06:05 RBC 3.25 L (4.40-5.70) M/uL Hgb 10.3 L (14.0-18.0) gm/dl Hct 31.2 L (42.0-52.0) % Potassium 5.7 H (3.5-5.1) mmol/L Chloride (98-107) mmol/L Carbon Dioxide 16.9 L (22-30) mmol/L BUN 40 H (9-20) mg/dL Creatinine 1.9 H (0.66-1.25) mg/dL POC Glucose 199 H (70-110) mg/dL Random Glucose 148 H (70-110) mg/dL 12/11/16 Range/Units 07:26 RBC (4.40-5.70) M/uL Hgb (14.0-18.0) gm/dl Hct (42.0-52.0) % Potassium (3.5-5.1) mmol/L Chloride (98-107) mmol/L Carbon Dioxide (22-30) mmol/L BUN (9-20) mg/dL Creatinine (0.66-1.25) mg/dL POC Glucose 180 H (70-110) mg/dL Random Glucose (70-110) mg/dL Condition at Discharge: (1) Good Discharge Medications - Discharge Medications Prescriptions: Hydrocodone/Acetaminophen [[place] 10-325 Tablet] 0.5 - 1 each PO Q6H PRN #30 tablet PRN Reason: Pain - General Home Medications: Ambulatory Orders Aspirin [Aspirin EC] 81 mg PO DAILY 02/05/14 [Last Taken 06/30/15] Lisinopril 2.5 mg PO DAILY 02/05/14 [Last Taken 06/30/15] Simvastatin [Zocor] 20 mg PO DAILY 02/05/14 [Last Taken 06/30/15] Allopurinol 100 mg PO DAILY tab 04/08/15 [Last Taken 06/30/15] Amlodipine Besylate [Norvasc] 5 mg PO DAILY 12/08/16 [Last Taken Unknown] Cholecalciferol (Vitamin D3) [Vitamin D3] 2,000 unit PO DAILY 12/08/16 [Last Taken Unknown] Gabapentin [Neurontin] 100 mg PO QHS 12/08/16 [Last Taken Unknown] Omeprazole 20 mg PO DAILY 12/08/16 [Last Taken Unknown] Glipizide [Glipizide ER] 5 mg PO DAILY 12/09/16 [Last Taken Unknown] Metoprolol Succinate [Toprol Xl] 100 mg PO DAILY 12/09/16 [Last Taken Unknown] Acetaminophen [Tylenol 325Mg] 650 mg PO Q6H PRN #120 12/11/16 [Last Taken Unknown] Hydrocodone/Acetaminophen [[place] 10-325 Tablet] 0.5 - 1 each PO Q6H PRN #30 tablet 12/11/16 [Last Taken Unknown] Discharge Plan - Discharge Instructions Activity at Discharge: As Per Physical Therapy Diet at Discharge: Regular Diet, Other (low potassium) Additional Instructions: Continue current medications. Pain control: Tylenol 650 mg every 6 hours and [place] 10/325 mg 1/2 tab-1 tab every 6 hours as needed for pain. Out patient physical therapy. please contact Dr. Vargas's office first thing wednesday morning to schedule a follow up visit. Please also contact Dr. Carrero's office to schedule a follow up visit within 5 days of discharge. You will need to get labs drawn on Wednesday to recheck your potassium level. Please return re any new or worsening symptoms
--- NOTE | 2016-12-11 10:55 | Physician Progress Note ---
Subjective - Date Date of Physician Progress Note: 12/11/16 - Subjective Subjective Comment: patient tolerated therapy well this morning. he ambulated down the navarro well with Kat. The plan was to get him home today, however when he was in the bathroom cleaning up, patient bend over and his back tightened up on him again. it took two people to get him back to his bed. He denies any weakness or change in numbness to lower extremities. he was able to ambulate with assist. He's now in pretty significant pain, donna w/ palpation of site. In addition, at 3:26 am, telemetry demonstrated a single cuplet. patient denies cp, sob, dizziness or lightheadedness. obtained baseline EKG. Objective - Vital Signs Vital Signs: Vital Signs - Last 24 Hrs Temp Pulse Pulse Resp BP Pulse Ox 12/11/16 05:00 98.1 F 73 18 144/68 98 12/10/16 21:00 98.3 F 66 66 16 138/81 98 12/10/16 15:00 99.0 F 73 18 115/59 98 - General General Appearance: Alert, Oriented x3, Cooperative, No acute distress Limitations: No limitations - Head Head exam: Normal inspection - Eye Eye exam: Normal appearance. negative: Conjunctival injection, Periorbital swelling - ENT ENT exam: Normal exam, Mucous membranes moist Ear exam: Normal external inspection Nasal Exam: Normal inspection Mouth exam: Normal external inspection - Neck Neck exam: Normal inspection - Respiratory Respiratory exam: Normal lung sounds bilaterally. negative: Respiratory distress - Cardiovascular Cardiovascular Exam: Regular rate, Normal rhythm, Normal heart sounds Peripheral Pulses: 2+: Radial (R), Radial (L) - GI/Abdominal GI/Abdominal exam: Soft. negative: Tenderness - Rectal Rectal exam: Deferred - exam: Deferred - Extremities Extremities exam: Normal inspection, Full ROM, Normal capillary refill. negative: Joint swelling, Tenderness - Back Back exam: Reports: Muscle spasm, Paraspinal tenderness, Tenderness (lumbar). Denies: Full ROM, Rash noted - Neurological Neurological exam: Alert. negative: Motor sensory deficit, Oriented X3, Reflexes normal - Psychiatric Psychiatric exam: Normal affect, Normal mood. negative: Agitated, Anxious - Skin Skin exam: Dry, Intact, Normal color, Warm Assessment and Plan - Assessment and Plan (1) Intractable low back pain Current Visit: Yes Status: Acute Base Code: M54.5 - LOW BACK PAIN Comment : 12/11/16: strain vs. disc protrusion vs. other? Patient was doing well, however re strained his back this morning in the bathroom. - Pain control: Tylenol 650 mg PO Q6H prn & [place] 10/325 mg 1/2-1 tab Q6H prn for pain. - Dr. Vargas will see patient as outpatient - PT/OT as tolerated (2) Renal insufficiency Current Visit: Yes Status: Acute Base Code: N28.9 - DISORDER OF KIDNEY AND URETER, UNSPECIFIED Comment: 12/11/16- baseline Cr ~2.0 - Cr 1.9, GFR 37 - potassium 5.7. - obtain baseline ekg, continue telemetry - he denies CP, heart palpitations, TAMARA. (3) DNR (do not resuscitate) Current Visit: Yes Status: Acute Base Code: Z66 - DO NOT RESUSCITATE Comment: 12/11/16- pt is dnr Results - Labs Result Diagrams: 12/11/16 06:05 12/11/16 06:05 Labs Last 24 Hours: Laboratory Results - last 24 hr 12/10/16 12/10/16 12/11/16 17:15 22:00 06:05 WBC 7.0 RBC 3.25 L Hgb 10.3 L Hct 31.2 L MCV 96.0 MCH 31.6 MCHC 33.0 RDW 14.0 Plt Count 182 MPV 9.8 Gran % 58.9 Lymphocytes % 27.3 Monocytes % 7.5 Eosinophils % 6.0 Basophils % 0.3 Sodium Potassium Carbon Dioxide BUN Creatinine Estimated GFR POC Glucose 126 H 199 H Random Glucose Calcium 12/11/16 12/11/16 06:05 07:26 WBC RBC Hgb Hct MCV MCH MCHC RDW Plt Count MPV Gran % Lymphocytes % Monocytes % Eosinophils % Basophils % Sodium 141 Potassium 5.7 H Carbon Dioxide 16.9 L BUN 40 H Creatinine 1.9 H Estimated GFR 37 POC Glucose 180 H Random Glucose 148 H Calcium 10.0 DVT/PE Assessment - Risk for VTE Risk for VTE: No Risk Level: Moderate Risk Assessment Date: 12/09/16 Risk Assessment Time: 12:00 VTE Orders Placed or Will Be Placed: No VTE Reason for No Prophylaxis: Not Indicated (patient may be going to surgery later today) - Active Medicaitons Current Medications: Current Medications Acetaminophen (Tylenol 325mg) 650 mg PO Q6HR PRN PRN Reason: Pain - General Hydrocodone Bitart/Acetaminophen ([place] 10mg/325mg) 0.5 each PO Q6H PRN PRN Reason: Pain - General Hydrocodone Bitart/Acetaminophen ([place] 10mg/325mg) 1 each PO Q6H PRN PRN Reason: Pain - General Amlodipine Besylate (Norvasc) 5 mg PO DAILY [facility] Last Admin: 12/10/16 10:41 Dose: 5 mg Enoxaparin Sodium (Lovenox) 40 mg SQ DAILY [facility] Last Admin: 12/10/16 12:57 Dose: 40 mg Gabapentin (Neurontin) 100 mg PO QHS [facility] Last Admin: 12/10/16 22:04 Dose: 100 mg Glipizide (Glucotrol) 5 mg PO DAILY [facility] Last Admin: 12/10/16 10:41 Dose: 5 mg Lisinopril (Zestril) 2.5 mg PO DAILY [facility] Last Admin: 12/10/16 10:39 Dose: 2.5 mg [facility] Admin: 12/11/16 06:49 Dose: 40 mg Simvastatin (Zocor) 20 mg PO DAILY [facility] Last Admin: 12/10/16 10:41 Dose: 20 mg AMI Plan - Labs Result Diagrams: 12/11/16 06:05 12/11/16 06:05
[2016-12-11] MEDS: AMLODIPINE BESYLATE 5MG TAB PO SCH (11:01)
[2016-12-11] MEDS: GLIPIZIDE 5 MG TABLET PO SCH (11:01)
[2016-12-11] MEDS: SIMVASTATIN 20 MG TABLET PO SCH (11:01)
[2016-12-11] MEDS: LISINOPRIL 5 MG TABLET PO SCH (11:01)
[2016-12-11] MEDS: ENOXAPARIN 40 MG/0.4 ML SYR SQ SCH (11:01)
[2016-12-11] MEDS: HYDROCODONE/APAP 10/325 TABLET PO PRN ×2 (11:40→18:33)
[2016-12-11] MEDS ORDERED: ACETAMINOPHEN 325 MG TAB PO PRN (12:00)
[2016-12-11] MEDS ORDERED: ACETAMINOPHEN 500 MG TABLET PO SCH (12:00)
[2016-12-11 12:19] LABS: ANION GAP 8.1 (7-16)
[2016-12-11] MEDS: GABAPENTIN 100 MG CAPSULE PO SCH (21:16)
[2016-12-12 06:11] LABS: BASO % 0.6 % (0-6); EOS % 5.3 % (0-6); GRAN % 59.5 % (47-80); HEMOGLOBIN 9.8 gm/dl (14.0-18.0); LYMPH % 27.5 % (16-45); MEAN CELL VOLUME 96.2 fl (81-97); MEAN CORPUSCULAR HEMOGLOBIN 31.4 pg (27-33); MEAN CORPUSCULAR HGB CONC 32.7 g/dl (32-36); MEAN PLATELET VOLUME 9.6 fl (7.4-10.4); MONO % 7.1 % (0-9); PLATELET COUNT 184 K/uL (130-400); RED BLOOD COUNT 3.12 M/uL (4.40-5.70); WHITE BLOOD COUNT W/O DIFF 7.2 K/uL (4.2-12.2)
[2016-12-12 06:36] LABS: ANION GAP 6.9 (7-16); CARBON DIOXIDE 18.1 mmol/L (22-30); CREATININE 1.9 mg/dL (0.66-1.25)
[2016-12-12] MEDS: PANTOPRAZOLE SODIUM 40 MG TABLET PO SCH (06:43)
[2016-12-12] MEDS: AMLODIPINE BESYLATE 5MG TAB PO SCH (09:59)
[2016-12-12] MEDS: HYDROCODONE/APAP 10/325 TABLET PO PRN (09:59)
[2016-12-12] MEDS: LISINOPRIL 5 MG TABLET PO SCH (10:00)
[2016-12-12] MEDS: SIMVASTATIN 20 MG TABLET PO SCH (10:01)
[2016-12-12] MEDS: GLIPIZIDE 5 MG TABLET PO SCH (10:01)
[2016-12-12] MEDS: ENOXAPARIN 40 MG/0.4 ML SYR SQ SCH (10:02)
--- NOTE | 2016-12-14 11:06 | Physical Therapy Tx Note ---
Physical Therapy Tx Note - Treatment Note Tolerated: Fair Total Time Spent With Patient: 45 Physical Therapy Tx Note: Detail (Pt up in chair upon arrival, present in room. Discussed earlier event of increased back pain when getting dressed. Discussed modification of activity/position/techniques because of acute state, including sitting for donning/doffing underwear, pants, and socks, as well as hip hinging and squatting instead of bending. Ambulated with single tip cane out into navarro about 65 feet and returned to bed for assessment of pelvic alignment/mobility. Painful transitioning from sitting to supine and return, localized to R low back. Noted "tightness" in R anterior thigh while ambulating ; tried walking w/cane in L hand to support R LE better. Returned to bedside chair w/ice pack at R low back, call light in reach. Nrsg notified.) Physical Therapy Problem List: Detail (1. Dysfunction of pelvic alignment/ mobility 2. Decreased confidence w/bed mobility, transfers, gait. 3. Local tenderness R lumbosacral region.) Physical Therapy Goals: 1. Pt will be independent w/bed mobility, transfers, and gait w/single tip cane. 2. Pt will report decreased pain to 3/10 or less. Prognosis: Good Physical Therapy Plan: Pt will be seen 1-2x/daily M-F for mobility/transfer training, manual therapy, and stabilization exercises while hospitalized. He anticipates seeing Dr. Vargas for further pain management and he may benefit from outpatient physical therapy once discharged to help manage chronic pain.
== END 2016-12-12 13:10 | disposition home or self-care (01) | DRG 552 ==
LOC: ER 12:13 → MEDSURG 17:53 → OBSVTOIN 12-09 13:30
PROVIDERS: ADMIT Family Medicine; ATTEND Family Medicine
DX: M54.5 Low back pain (principal); N28.9 Disorder of kidney and ureter, unspecified; Z66 Do not resuscitate; E11.9 Type 2 diabetes mellitus without complications; Z79.84 Long term (current) use of oral hypoglycemic drugs; I73.9 Peripheral vascular disease, unspecified; N19 Unspecified kidney failure; I10 Essential (primary) hypertension; E66.9 Obesity, unspecified; M10.9 Gout, unspecified; E78.00 Pure hypercholesterolemia, unspecified
CPT/HCPCS: 99285 ×2; 96376; 96365; 96366; 96375; 85025 ×2; 85730; 85610; 80048; 80053; 81003; G0378 ×7; J3010 ×6; 36416; 82948; 93005; 93010; 97140; 97165; 97530; 99223; 99233; 99239; J1650; J7030